=== PATIENT | male | born 1975 | race Two or more races ===

== ENCOUNTER 2025-01-26 13:22 | Inpatient (IN) | payer MEDICAID, SELFPAY ==
[2025-01-26 13:33] VITALS: BP 139/100; PULSE 108; RESP 20; TEMP 36.8; O2SAT 99
--- NOTE | 2025-01-26 14:00 | EKG_ITS ---
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
--- NOTE | 2025-01-26 14:00 | XR_ITS ---
Examination: AP chest single view TECHNIQUE: AP sitting portable chest single view Date and time: January 26, 2025 1421 hours INDICATIONS: Chest pain today. FINDINGS: Normal heart size Lungs are clear The osseous structures are intact IMPRESSION: No active disease
--- NOTE | 2025-01-26 14:02 | EDNOTE_ITS ---
ED Recheck Abnl Lab Rx-RME/HPI General Chief Complaint: Recheck/Abnormal Lab/Rx Stated Complaint: High blood sugar, possible DKA, vomiting Time Seen by Provider: 01/26/25 13:33 Arrival date/time: 01/26/25 13:22 RME / HPI RME / HPI narrative: 50-year-old male patient came in for evaluation regarding hyperglycemia. Patient has been having hyperglycemia worsening for the last 1 week, according to the family is always reads high. Associated with vomiting, for the last 3 days nonbloody. Patient was also noted to be getting weaker and weaker to the point that patient is needing assistance to ambulate. Patient denies any fever denies any abdominal pain denies any other complaints patient cannot take anything down due to vomiting. Related Data Allergies Allergy/AdvReac Type Severity Reaction Status Date / Time No Known Drug Allergies Allergy Verified 01/26/25 13:29 Review of Systems Review of Systems Narrative Review of Systems: Review of system reviewed and within normal limits except mentioned in HPI ED Exam Narrative Physical exam: VITAL SIGNS: Reviewed. GENERAL APPEARANCE: Alert and interactive, follows commands, no acute distress, HEAD AND FACE: Non-traumatic. ENT: PERRL, pink conjunctivitis, eyelid no trauma, Mucous membrane dry NECK: Supple, nontender, no nuchal rigidity. CHEST: No tenderness, no crepitus, no paradoxical movement, no retractions. LUNGS: Clear, well ventilated, symmetric, no rales, no wheezing, no ronchi, no stridor, good breath sounds bilaterally. HEART: Regular rate, regular rhythm, no murmur, no gallops. ABDOMEN: Soft, positive bowel sounds, nondistended, no guarding, nontender, no rebound, no masses, RECTAL: Deferred. GENITAL: Deferred. NEUROLOGICAL: Gross motor function intact sensory function intact, Appropriate for age. MUSCULOSKELETAL: low back nontender, full range of motion. EXTREMITIES: Nontender, full range of motion. SKIN: Color pink, dry, no rash, no lacerations, no abrasions, no contusions. LYMPHATICS: Deferred. Course Quality Measures none Orders Category Date Time Status COVID-19 Screening Questionnaire NOW Care 01/26/25 17:[address] Screening NOW Care 01/26/25 14:56 Active Decision to Admit X1 Care 01/26/25 17:51 Completed EKG (ED ONLY) *Do not use* NOW Care 01/26/25 14:01 Completed Insert IV NOW Care 01/26/25 14:[address] abdomen pelvis w con Stat Exams 01/26/25 14:56 Completed EKG (ED Only) Stat Exams 01/26/25 14:00 Ordered XR chest 1V Stat Exams 01/26/25 14:00 Completed ABG [Arterial Blood Gas] Stat Lab 01/26/25 14:21 Completed Acetone [Beta Hydroxybutyrate] Stat Lab 01/26/25 14:29 Completed CBC [CBC] Stat Lab 01/26/25 14:29 Completed CMP [Comprehensive Metabolic Panel] Stat Lab 01/26/25 14:29 Completed Lactate (Lactic Acid) Stat Lab 01/26/25 14:29 Completed Lactate (Lactic Acid) Stat Lab 01/26/25 16:40 Results Lactic Acid, 3 HR Stat Lab 01/26/25 19:40 Ordered Lipase Stat Lab 01/26/25 14:29 Completed Mag [Magnesium] Stat Lab 01/26/25 14:29 Completed UA, C/S IF [Urinalysis, C/S if Indicated] Stat Lab 01/26/25 15:50 Completed Famotidine Inj [Pepcid Inj] Med 01/26/25 13:57 Discontinued 20 mg IVP X1 ONE Ondansetron Inj [Zofran Inj] Med 01/26/25 13:57 Discontinued 4 mg IVP X1 ONE Ringers Lactated 1000 ml [Lactated Ringers] 1,000 ml Med 01/26/25 13:59 Discontinued IV 999 mls/hr Ringers Lactated 1000 ml [Lactated Ringers] 1,000 ml Med 01/26/25 13:59 Dis continued IV 999 mls/hr Ringers Lactated 1000 ml [Lactated Ringers] 1,000 ml Med 01/26/25 15:53 Discontinued IV 999 mls/hr Vital Signs Vital signs: Vital Signs Temperature 98.2 F 01/26/25 13:33 Pulse Rate 108 H 01/26/25 13:33 Respiratory Rate 20 01/26/25 13:33 Blood Pressure 139/100 H 01/26/25 13:33 Pulse Oximetry (%) 99 01/26/25 13:33 Oxygen Delivery Method Room Air 01/26/25 13:33 Recheck / Abnormal Lab / Rx MDM Narrative MDM Narrative:: 50-year-old male patient came in for evaluation regarding hyperglycemia. Patient has been having hyperglycemia worsening for the last 1 week, according to the family is always reads high. Associated with vomiting, for the last 3 days nonbloody. Patient was also noted to be getting weaker and weaker to the point that patient is needing assistance to ambulate. Patient denies any fever denies any abdominal pain denies any other complaints patient cannot take anything down due to vomiting. EKG was noted to be sinus tachycardia ventricular rate of 108 bpm, no ST segment elevation depression noted. Patient's workup is significant for lactic acidosis initially 4.2 after 3 L of fluid went up to 5.2.. CBC showed leukocytosis of 13.3 ABG showed pH of 7.5. Acetone was noted to be 0.70 blood sugar 267 with no sign of DKA. CT scan of the abdomen pelvis came back unremarkable. Urinalysis no UTI Patient was given Pepcid, and 3 L IV fluids and Zofran. Spoke with hospitalist, Dr. Estrella who admitted the patient Patient data External records reviewed:: None Clinical information provided by:: patient and family Social determinants that could affect healthcare access:: none Patient has the following chronic illnesses:: Diabetes mellitus How is presenting disease/condition affected by chronic disease/condition?: exacerbated by Evaluation data The following diagnostics were reviewed and interpreted by me:: lab results, radiology exam(s) and EKG tracing(s) Lab and/or radiology exams considered but not ordered:: None Interpretation Summary: See results MDM Medications / Prescriptions Medications or Prescriptions considered but not ordered:: None Medication administrations:: Medication Administration History Discontinued Medications Famotidine (Famotidine Inj 10 Mg/Ml Vial 2 Ml) 20 mg IVP X1 ONE Stop: 01/26/25 13:58 Last Admin: 01/26/25 14:53 Dose: 20 mg Documented By: GAYE Lactated Ringer's (Lactated Ringers) 1,000 mls @ 999 mls/hr IV .Q1H1M ONE Stop: 01/26/25 14:59 Last Infusion: 01/26/25 16:00 Dose: Infused Documented By: Admin: 01/26/25 14:57 Dose: 999 mls/hr Documented By: GAYE Lactated Ringer's (Lactated Ringers) 1,000 mls @ 999 mls/hr IV .Q1H1M ONE Stop: 01/26/25 14:59 Last Infusion: 01/26/25 16:00 Dose: Infused Documented By: Admin: 01/26/25 14:57 Dose: 999 mls/hr Documented By: GAYE Lactated Ringer's (Lactated Ringers) 1,000 mls @ 999 mls/hr IV .Q1H1M ONE Stop: 01/26/25 16:53 Last Infusion: 01/26/25 16:31 Dose: Infused Documented By: Admin: 01/26/25 15:59 Dose: 999 mls/hr Documented By: GAYE Ondansetron HCl (Ondansetron Inj 2 Mg/Ml Inj 2 Ml) 4 mg IVP X1 ONE; Protocol Stop: 01/26/25 13:58 Last Admin: 01/26/25 14:53 Dose: 4 mg Documented By: GAYE Zofran IV fluids and Pepcid Consultations Consultation(s) initiated? (list below): No Diagnosis Recheck Differential Diagnosis: other (Dehydration, DKA, lactic acidosis gastroparesis) Most likely diagnosis given after review of the tests above:: Dehydration, lactic acidosis Admission Indicated Admission indicated?: indicated Admission Request Was there a request for admission?: Yes Admission Attestation Admission request attestation: Discussed case with [Dr. Estrella] from Hospitalist service regarding admission. Discussed patients ED course, exam findings, labs, and radiology results. The Hospitalist [agrees] to accept the patient for admission. Disposition Plan Disposition Plan: Admit Discharge Plan Plan Patient Disposition: Admit Acute Care w/in Hospital Prescriptions/Referrals Referrals: No Primary/Family,Physician [Primary Care Provider] - In 1 week Problem List Clinical Impression: Acidosis, lactic, Diabetic gastroparesis, Nausea & vomiting Patient/Caregiver Discharge Instructions Print Language: Portuguese Stand Alone Forms: [employer] Award Info., Patient Portal Info Letter
[2025-01-26 14:26] LABS: Base Excess 4 (-3-3); HCO3 26 mEq/L (20-26); Inspired Oxygen, FIO2 21 %; O2 Saturation 96 % (91-98); PCO2 33 mmHg (32.0-48.0); PO2 80 mmHg (83-108)
[2025-01-26 14:28] LABS: Puncture Site Left Radial
[2025-01-26 14:29] LABS: Allen Test Performed/OK
[2025-01-26 14:44] LABS: Beta Hydroxybutyrate 0.7 mmol/L (<0.6)
[2025-01-26 14:47] LABS: Basophils # (Auto) 0.1 Thou/mm3 (0.0-0.2); Basophils % (Auto) 1 % (0-2.5); Eosinophils # (Auto) 0.1 Thou/mm3 (0.0-0.5); Eosinophils % (Auto) 1 % (0-10); Hematocrit 50.2 % (41.0-53.0); Hemoglobin 17.2 g/dL (13.5-16.0); Immature Granulocytes % (Auto) 0 % (0-0); Immature Granulocytes Auto 0.05 Thou/mm3 (0.00-0.00); Lactate (Lactic Acid) 4.2 mMol/L (0.4-2.0); Lymphocytes # (Auto) 2.6 Thou/mm3 (1.0-4.8); Lymphocytes % (Auto) 23 % (10-50); Mean Corpuscular HGB Conc 34.3 g/dl (31.0-37.0); Mean Corpuscular Volume 82 fL (80-100); Monocytes # (Auto) 1.1 Thou/mm3 (0.0-0.8); Monocytes % (Auto) 9 % (0-12); Neutrophils # (Auto) 7.5 Thou/mm3 (1.8-7.7); Neutrophils % (Auto) 66 % (37-80); Nucleated Red Blood Cell % 0 /100 WBC (0); Platelet Count 278 Thou/mm3 (140-440); RDW Standard Deviation 40.9 fL (35.1-43.9); Red Blood Count 6.14 Miln/mm3 (4.50-5.90); White Blood Count 11.3 Thou/mm3 (3.8-10.6)
[2025-01-26] MEDS: ONDANSETRON INJ 2 MG/ML INJ 2 ML 4 MG IVP (14:53)
[2025-01-26] MEDS: FAMOTIDINE INJ 10 MG/ML VIAL 2 ML 20 MG IVP (14:53)
--- NOTE | 2025-01-26 14:56 | XR_ITS ---
Examination: CT abdomen with intravenous contrast CT pelvis with intravenous contrast 2-D coronal reconstructions 2-D sagittal reconstructions Date and time of exam:January 26, 2025 1550 hours INDICATION: Abdominal pain nausea vomiting today. CTDI: vol (mGy) 8.38 DLP: (mGycm) 533 Technique: Multiple axial sections of the abdomen and pelvis have been obtained. 64 slice high-resolution scanner used. 3 mm axial sections have been obtained, post intravenous injection of 60 cc Isovue-370 2-D sagittal, coronal reconstructions obtained. Low dose protocols were performed. One or more of the following dose reduction techniques were used; automated exposure control, adjustment of the mA and/or KV according to patient size, use of iterative reconstruction technique. Findings: Diffuse fatty infiltration throughout the liver no focal liver lesions Spleen is not enlarged No gallstones No pancreatic or adrenal mass No renal or ureteral calculi, no hydronephrosis Aorta normal size No ascites Minute fat-containing umbilical hernia No periappendiceal inflammatory change No bowel obstruction Colonic diverticulosis, no diverticulitis Mild thickening of the urinary bladder wall up to 4 mm No prostatic megaly Osseous structures are intact IMPRESSION: Diffuse fatty infiltration throughout the liver No renal or ureteral calculi, no hydronephrosis Normal appendix No bowel obstruction diverticulitis or free air Minimal thickening of the urinary bladder wall, consider cystitis
[2025-01-26] MEDS: RINGERS LACTATED 1000 ML 1,000 ML 999 ML IV ×3 (14:57→15:59)
[2025-01-26 15:02] LABS: Anion Gap 14 (7-16); BUN/Creatinine Ratio 23 Ratio (12-20); Blood Urea Nitrogen 25 mg/dL (9-23); Carbon Dioxide 30.2 mMol/L (20.0-31.0); Chloride 89 mMol/L (98-107); Creatinine (Component) 1.1 mg/dL (0.6-1.3); Glucose 267 mg/dL (74-106); Potassium 4.2 mMol/L (3.4-5.1); Sodium 133 mMol/L (136-145); eGFR > 60 See Note
[2025-01-26 15:03] LABS: Alanine Aminotransferase 120 U/L (10-49); Albumin, Serum 5.2 gm/dL (3.5-5.0); Albumin/Globulin Ratio 1.6 (1.2-2.2); Alkaline Phosphatase 91 U/L (46-116); Aspartate Amino Transferase 86 U/L (0-34); Calcium 10.2 mg/dL (8.3-10.6); Calcium (Corrected) 10.2 mg/dL (8.5-10.1); Globulin 3.2 gm/dL (2.3-3.5); Lipase 199 U/L (12-53); Osmolality,Calculated 279 (275-295); Total Protein 8.4 gm/dL (5.7-8.2)
[2025-01-26 16:01] LABS: Collection Type, Urine Clean Catch; RBC,Urine 0 /hpf (0-3); Squamous Epithelial Cell,Urine 0 /hpf (0-5); WBC,Urine 0 /hpf (0-5)
[2025-01-26 16:04] VITALS: BP 145/91; PULSE 87; RESP 18; TEMP 36.8; O2SAT 100
[2025-01-26 16:11] LABS: Bilirubin,Urine Negative (Negative); Blood,Urine Negative (Negative); Clarity,Urine Clear (Clear/Hazy); Color,Urine Lt-Yellow (Lt Yel-Yel); Culture Indicated,Urine Not Indicated; Glucose, Urine 4+ (Negative); Ketones,Urine 2+ (Negative); Leukocyte Esterase,Urine Negative (Negative); Nitrite,Urine Negative (Negative); PH,Urine 6.5 (5.0-7.0); Protein,Urine Negative (Neg - Trace); Specific Gravity,Urine 1.024 (1.001-1.035); Urobilinogen,Urine Negative mg/dL (0.0-1.0)
[2025-01-26 17:06] LABS: Lactate (Lactic Acid) 5.2 mMol/L (0.4-2.0)
[2025-01-26 17:33] LABS: Reflex Lactate? Y
--- NOTE | 2025-01-26 18:04 | EKG_ITS ---
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
--- NOTE | 2025-01-26 18:07 | PD.RESHP ---
Documentation for date of: 01/26/25 HPI History of Present Illness Chief complaint: intractable vomiting History of present illness: Tello Barajas is 50 yr male with PMH of T2DM, HTN presenting to ED due to intractable nausea and vomiting since past couple days. Patient had gone to see PCP at [facility] and was concerned, advised patient to come to ED. Patient stated that he has had no oral intake since past 3 days. Experiences vomiting even with sips of water says it feels like stomach is full/bloated. Denies any fever, headache, chills, no hematemesis, has had no sick contacts, only eats at home. Endorses loose stools but not quite diarrhea. No abdominal pain. Patient checks blood sugars at home 5 times a day typically range 200?300. He has improved diet and has lost some weight per . In ED, BP 140/100, tachycardia 108, afebrile saturating 99% room air. Mild leukocytosis 11, 133, potassium 4.2, chloride 89, bicarb 30, creatinine 1.1, Lactic acid 4.2 up trended to 5.2. Transaminitis AST 86, ALT 120, lipase 200. Chest x-ray negative for active disease, CT abdomen pelvis showed mild thickening urinary bladder, no bowel obstruction. He was given Zofran, famotidine, 3 bolus LR in the ED. Patient to be admitted for intractable nausea and vomiting most likely secondary to diabetic gastroparesis. PMH: As noted above PSH: Denies surgeries FamHx: Significant for diabetes in siblings and mother, father Social: Currently unemployed, denies smoking, denies drinking, denies drug use. Meds: Med rec pending Allergies: NKDA Review of Systems Review of Systems Systems Reviewed: All systems reviewed, normal except as documented Exam Vital Signs Temp Pulse Resp BP Pulse Ox O2 Del Method 98.3 F 87 18 145/91 H 100 Room Air 01/26/25 16:04 01/26/25 16:04 01/26/25 16:04 01/26/25 16:04 01/26/25 16:04 01/26/25 16:04 Narrative Exam General: middle age male, No acute distress, cooperative HEENT: NCAT, No JVD noted. Mucosa dry. Pupils are equal and reactive to light bilaterally Cardiovascular: Normal S1 and S2. Regular rate and rhythm. Respiratory: Lungs are clear to auscultation bilaterally. No wheezing or crackles heard. Abdomen: Soft, nontender, not distended, hypoactive bowel sounds. Skin: Warm to touch, dry, no rashes noted Musculoskeletal: No gross injuries. Able to move all 4 extremities. No pitting edema Neuro: Alert and oriented x3. No focal neuro deficits. Psych: Normal affect and mood Results: Labs 01/27/25 04:40 01/27/25 04:40 Labs: Short CBC 01/26/25 Range/Units 14:29 WBC 11.3 H (3.8-10.6) Thou/mm3 Hgb 17.2 H (13.5-16.0) g/dL Hct 50.2 (41.0-53.0) % Plt Count 278 (140-440) Thou/mm3 BMP 01/26/25 14:29 Sodium 133 L Potassium 4.2 Chloride 89 L Carbon Dioxide 30.2 BUN 25 H Creatinine 1.1 Glucose 267 H Calcium 10.2 Liver Function 01/26/25 Range/Units 14:29 Total Bilirubin 1.0 (0.3-1.2) mg/dL AST 86 H (0-34) U/L ALT 120 H (10-49) U/L Alkaline Phosphatase 91 (46-116) U/L Albumin 5.2 H (3.5-5.0) gm/dL Urine 01/26/25 Range/Units 15:50 Urine Color Lt-Yellow (Lt Yel-Yel) Urine Clarity Clear (Clear/Hazy) Urine pH 6.5 (5.0-7.0) Ur Specific [place] 1.024 (1.001-1.035) Urine Protein Negative (Neg - Trace) Urine Glucose (UA) 4+ A (Negative) ABG Interpretation ABG results: 01/26/25 14:21 ABG pH 7.50 H ABG pCO2 33 ABG pO2 80 L ABG HCO3 26 ABG O2 Saturation 96 ABG Base Excess 4 H Quality Measures Quality Measures VTE prophylaxis Medications Home Medications and Allergies Home Medications ?Medication ?Instructions ?Recorded ?Confirmed ?Type Antacid (calcium carbonate) 600 mg PO DAILY 01/26/25 01/26/25 History atorvastatin 40 mg tablet 40 mg PO QDAY 01/26/25 01/26/25 History cyclobenzaprine 10 mg tablet 10 mg PO BID 01/26/25 01/26/25 History empagliflozin 25 mg tablet 25 mg PO QDAY 01/26/25 01/26/25 History (Jardiance) famotidine 20 mg tablet 20 mg PO HS 01/26/25 01/26/25 History fenofibrate nanocrystallized 145 145 mg PO QDAY 01/26/25 01/26/25 History mg tablet (Tricor) glyburide 5 mg tablet 5 mg PO QDAY 01/26/25 01/26/25 History hydrochlorothiazide 25 mg tablet 25 mg PO BID 01/26/25 01/26/25 History losartan 50 mg tablet 50 mg PO QDAY 01/26/25 01/26/25 History meloxicam 7.5 mg tablet 7.5 mg PO QDAY 01/26/25 01/26/25 History metoprolol tartrate 50 mg tablet 50 mg PO BID 01/26/25 01/26/25 History sitagliptin phosphate 50 1 tab PO BIDWMEAL 01/26/25 01/26/25 History mg-metformin 1,000 mg tablet (Janumet) Allergies Allergy/AdvReac Type Severity Reaction Status Date / Time No Known Drug Allergies Allergy Verified 01/26/25 13:29 Visit Medications Acetaminophen (Acetaminophen 325 Mg Tablet) 650 mg PO Q6H PRN PRN Reason: Fever >100.3 or pain 1-3 Stop: 02/25/25 17:56 Dextrose (Dextrose 50%-Water Inj 50 Ml Syringe) 25 ml IV Q15MIN PRN PRN Reason: BG 50-70 responsive npo pt Stop: 02/25/25 18:03 Dextrose (Dextrose 50%-Water Inj 50 Ml Syringe) 50 ml IV Q15MIN PRN PRN Reason: BG <50 OR BG <70 & pt unresponsive Stop: 02/25/25 18:03 Enoxaparin Sodium (Enoxaparin Sod Inj 40 Mg/0.4 Ml Syringe) 40 mg SC QDAY GINNA Stop: 02/09/25 18:14 Glucagon (Glucagon Inj 1 Mg Vial) 1 mg IM Q15MIN PRN PRN Reason: BG <70, and no IV access Insulin Human Lispro (Insulin Lispro (Admelog) 1 Unit/0.01 Ml Unit) 0 unit SC AC GINNA; Protocol Stop: 02/26/25 07:29 Lactulose (Lactulose Syrup 20 Gm/30 Ml Udc) 10 gm PO TID PRN; Protocol PRN Reason: CONSTIPATION Stop: 02/25/25 18:01 Metoclopramide HCl (Metoclopramide Inj 5 Mg/Ml Vial 2 Ml) 5 mg IVP TID GINNA; Protocol Stop: 02/25/25 18:14 Discontinued Medications Famotidine (Famotidine Inj 10 Mg/Ml Vial 2 Ml) 20 mg IVP X1 ONE Stop: 01/26/25 13:58 Last Admin: 01/26/25 14:53 Dose: 20 mg Lactated Ringer's (Lactated Ringers) 1,000 mls @ 999 mls/hr IV .Q1H1M ONE Stop: 01/26/25 14:59 Last Infusion: 01/26/25 16:00 Dose: Infused Lactated Ringer's (Lactated Ringers) 1,000 mls @ 999 mls/hr IV .Q1H1M ONE Stop: 01/26/25 14:59 Last Infusion: 01/26/25 16:00 Dose: Infused Lactated Ringer's (Lactated Ringers) 1,000 mls @ 999 mls/hr IV .Q1H1M ONE Stop: 01/26/25 16:53 Last Infusion: 01/26/25 16:31 Dose: Infused Ondansetron HCl (Ondansetron Inj 2 Mg/Ml Inj 2 Ml) 4 mg IVP X1 ONE; Protocol Stop: 01/26/25 13:58 Last Admin: 01/26/25 14:53 Dose: 4 mg Assessment & Plan Plan Tello Barajas is 50 yr male with PMH of T2DM, HTN presenting to ED due to intractable nausea and vomiting since past couple days. Patient stated that he has had no oral intake since past 3 days. Patient to be admitted for intractable nausea and vomiting most likely secondary to diabetic gastroparesis. # Intractable nausea and vomiting DDx: Diabetic gastroparesis, viral gastroenteritis, bowel obstruction, biliary disease No oral intake past 3-4 days. Experiences vomiting even with sips of water. Denies any sick contacts, denies any new food. CT abdomen pelvis showed mild thickening urinary bladder, no bowel obstruction. He was given Zofran, famotidine, 3 bolus LR in the ED. ?Start clear liquid diet advance as tolerated ? IV metoclopramide 5 mg TID ?Maintenance fluids LR 80 cc/h -repeat EKG in AM to monitor QTc levels -utox pending #Lactic acidosis #Leukocytosis, reactive Most likely type B with no evidence of significant hypoxia. Patient uses metformin for diabetes. Initial lactic acid 4.2, he was given 3 bolus LR in the ED. Subsequently up trended to 5.2. ?Trend lactic acid ? Continue maintenance fluids as above #Hx fpf-[id number] type 2 diabetes Patient takes glyburide 5mg, Janumet 50-100mg BID, Jardiance 25mg daily. No A1c on file. On admission initial glucose 267. -Held home medications -Bedside blood glucose checks ACHS -Insulin lispro sliding scale -Carb consistent low diet -A1c pending #Transaminitis AST 86, ALT 120, lipase 200. Abdominal exam benign. Imaging negative for gallstones. ? Monitor with daily CMP #Hx hypertension Takes losartan 50mg daily, metoprolol-HCTZ 50-25mg BID. -resume once he can tolerate oral intake Health maintenance: Dispo: medsurg, intractable vomiting FEN: low carb, clear liquid DVT prophylaxis:Lovenox CODE STATUS: Full code The patient's management plan was discussed with my attending physician Dr. Estrella. Марина Fink, PGY-1 Attending Provider Attestation/Addendum I have examined the patient, reviewed labs and imaging findings, discussed the case with the resident(s), and reviewed entered orders. I agree with the plan of care as outlined in this note, with these additional summaries/recommendations: After examination of the patient and review of the clinical data, I feel that this patient needs admission to the hospital for further treatment and evaluation. Patient seen at bedside. He reports intractable nausea and vomiting for 72 hours. He reports he has had no oral intake. Etiology gastroparesis versus viral gastroenteritis. Start reglan and monitor for improvement. We will defer gastric emptying study as patient currently has hyperglycemia which can alter study results. Once blood sugars more improved patient can follow-up outpatient for gastric emptying study. Order A1C. Start insulin sliding scale with accu-checks. Target BS of 140-180 while hospitalized. Start CLD and monitor if patient can tolerate. Okay to start maintenance fluids. Patient noted to have significant lactic acidosis which is most likely type B from metformin. No need for further fluid bolus as this is not type A lactic acidosis. Resume home antihypertensive and gabapentin for neuropathy. Patient updated on the plan and all questions answered to satisfaction. Please see residents note for additional details and management. Dr. Delores MD
[2025-01-26 18:26] VITALS: BP 142/102; PULSE 89; RESP 20; TEMP 36.7; O2SAT 98
[2025-01-26] MEDS: ENOXAPARIN SOD INJ 40 MG/0.4 ML SYRINGE SC (18:40)
[2025-01-26] MEDS: RINGERS LACTATED 1000 ML 1,000 ML 80 ML IV (18:44)
[2025-01-26 19:13] LABS: Amphetamine/Methamp Scrn,U Negative (Negative); Barbiturate Screen,Urine Negative (Negative); Benzodiazepines Screen,Urine Negative (Negative); Benzoylecgonine Screen, Ur Negative (Negative); Fentanyl Screen,Urine Negative (Negative); Opiate Screen,Urine Negative (Negative); THC Screen,Urine Positive (Negative)
[2025-01-26 19:50] LABS: Reflex Lactate? Y
[2025-01-26 20:01] VITALS: BP 134/103; PULSE 83; RESP 18; TEMP 36.7; O2SAT 96; BMI 29.6
[2025-01-26 20:50] LABS: Lactic Acid, 3 HR 2.5 mMol/L (0.4-2.0)
[2025-01-27] VITALS: BP 114/87; PULSE 81; RESP 16; TEMP 36.8; O2SAT 98
[2025-01-27] MEDS: MELATONIN 3 MG TABLET PO (00:42)
[2025-01-27 04:00] VITALS: BP 124/91; PULSE 73; RESP 16; TEMP 36.6; O2SAT 96
[2025-01-27 06:27] LABS: Basophils % (Auto) 1 % (0-2.5); Eosinophils # (Auto) 0.2 Thou/mm3 (0.0-0.5); Eosinophils % (Auto) 3 % (0-10); Hematocrit 43.2 % (41.0-53.0); Hemoglobin 14.5 g/dL (13.5-16.0); Immature Granulocytes % (Auto) 0 % (0-0); Immature Granulocytes Auto 0.02 Thou/mm3 (0.00-0.00); Lymphocytes % (Auto) 44 % (10-50); Mean Corpuscular HGB Conc 33.6 g/dl (31.0-37.0); Mean Corpuscular Hemoglobin 27.8 pg (25.0-35.0); Mean Corpuscular Volume 83 fL (80-100); Monocytes # (Auto) 0.6 Thou/mm3 (0.0-0.8); Monocytes % (Auto) 8 % (0-12); Neutrophils % (Auto) 44 % (37-80); Nucleated Red Blood Cell % 0 /100 WBC (0); Platelet Count 191 Thou/mm3 (140-440); RDW Standard Deviation 41.5 fL (35.1-43.9); Red Blood Count 5.22 Miln/mm3 (4.50-5.90); White Blood Count 6.8 Thou/mm3 (3.8-10.6)
[2025-01-27 06:47] LABS: Glucose Estimated Average 229 mg/dL (80-131); Hemoglobin A1C 9.6 % Hgb (4.8-6.0)
[2025-01-27 06:55] LABS: Alanine Aminotransferase 116 U/L (10-49); Albumin, Serum 4.1 gm/dL (3.5-5.0); Albumin/Globulin Ratio 1.7 (1.2-2.2); Alkaline Phosphatase 71 U/L (46-116); Anion Gap 12 (7-16); Aspartate Amino Transferase 153 U/L (0-34); BUN/Creatinine Ratio 15 Ratio (12-20); Blood Urea Nitrogen 12 mg/dL (9-23); Carbon Dioxide 27.9 mMol/L (20.0-31.0); Cardiac Risk Estimate 6.1 RATIO (4.0-6.7); Chloride 99 mMol/L (98-107); Cholesterol 141 mg/dL (132-200); Creatinine (Component) 0.8 mg/dL (0.6-1.3); Estimated Creatinine Clearance 115.5 mL/min (>60); Globulin 2.4 gm/dL (2.3-3.5); Glucose 140 mg/dL (74-106); HDL Cholesterol 23 mg/dL (40-60); Magnesium 1.6 mg/dL (1.6-2.6); Osmolality,Calculated 279 (275-295); Phosphorous 2.7 mg/dL (2.4-5.1); Potassium 3.2 mMol/L (3.4-5.1); Sodium 139 mMol/L (136-145); Total Protein 6.5 gm/dL (5.7-8.2); Triglycerides 462 mg/dL (30-150); eGFR > 60 See Note
[2025-01-27] MEDS: INSULIN LISPRO (AdmeLOG) 1 UNIT/0.01 ML UNIT SC ×2 (07:51→11:49)
[2025-01-27 07:59] VITALS: BP 123/63; PULSE 68; RESP 18; TEMP 36.5; O2SAT 97
--- NOTE | 2025-01-27 09:18 | PC.SS ---
Patient Tello Barajas is a 50 Year old male admitted for Intractable Vomiting. SS met with patient at bedside to verify demographic information. Patient appeared alert and oriented. Patient reports he lives at home with family. Patient reports his medical decision maker is his Peggy Hou [phone]. Patient reports he does not utilize any source of DME to assist with ambulation. Patient is able to complete all ADL's independently. Choice of pharmacy is [facility]. PCP is Jason Packer. At time of discharge patient reports he will return back home, family will provide transportation. Next of kin, Peggy Andrews Discharge plan: Home
[2025-01-27 09:37] VITALS: BP 123/63; PULSE 68
[2025-01-27] MEDS: LOSARTAN POTASSIUM 25 MG TABLET 50 MG PO (09:37)
[2025-01-27] MEDS: ENOXAPARIN SOD INJ 40 MG/0.4 ML SYRINGE SC (09:37)
[2025-01-27] MEDS: POTASSIUM CHLORIDE 20 mEq TABCR 40 MEQ PO (09:38)
--- NOTE | 2025-01-27 10:40 | PD.RESPRO ---
Documentation for date of: 01/27/25 Exam Vital Signs Temp Pulse Resp BP Pulse Ox O2 Del Method 97.7 F 68 18 123/63 97 Room Air 01/27/25 07:59 01/27/25 09:37 01/27/25 07:59 01/27/25 09:37 01/27/25 07:59 01/27/25 07:59 Objective Labs 01/27/25 04:40 01/27/25 04:40 Labs: Laboratory Results - last 24 hr 01/26/25 01/26/25 01/26/25 14:21 14:29 15:50 WBC 11.3 H RBC 6.14 H Hgb 17.2 H Hct 50.2 MCV 82 MCH 28.0 MCHC 34.3 RDW Std Deviation 40.9 Plt Count 278 Neut % (Auto) 66 Lymph % (Auto) 23 [place] % (Auto) 9 Eos % (Auto) 1 Baso % (Auto) 1 Neut # (Auto) 7.5 Lymph # (Auto) 2.6 [place] # (Auto) 1.1 H Eos # (Auto) 0.1 Baso # (Auto) 0.1 Immature Gran # (Auto) 0.05 H Absolute Nucleated RBC 0.00 Immature Gran % 0 Nucleated RBC % 0 Puncture Site Left Radial ABG pH 7.50 H ABG pCO2 33 ABG pO2 80 L ABG HCO3 26 ABG O2 Saturation 96 ABG Base Excess 4 H FiO2 21 Sodium 133 L Potassium 4.2 Chloride 89 L Carbon Dioxide 30.2 Anion Gap 14 BUN 25 H Creatinine 1.1 Estim Creat Clear Calc Not Performed. eGFR > 60 BUN/Creatinine Ratio 23 H Glucose [address] Glu mg/dL Hemoglobin A1c Calculated Osmolality 279 Lactic Acid 4.2 H* Calcium 10.2 Corrected Calcium 10.2 H Phosphorus Magnesium 2.0 Total Bilirubin 1.0 AST 86 H ALT 120 H Alkaline Phosphatase 91 Total Protein 8.4 H Albumin 5.2 H Globulin 3.2 Albumin/Globulin Ratio 1.6 Triglycerides Cholesterol LDL Cholesterol, Calc HDL Cholesterol Cholesterol/HDL Ratio Lipase 199 H Beta-Hydroxybutyrate/Acetoacetate 0.7 H Ur Collection Type Clean Catch Urine Color Lt-Yellow Urine Clarity Clear Urine pH 6.5 Ur Specific [place] 1.024 Urine Protein Negative Urine Glucose (UA) 4+ A Urine Ketones 2+ A Urine Blood Negative Urine Nitrite Negative Urine Bilirubin Negative Urine Urobilinogen (Auto) Negative Ur Leukocyte Esterase Negative Urine RBC 0 Urine WBC 0 Ur Squamous Epith Cells 0 Urine Bacteria None Ur Culture Indicated? Not Indicated Urine Opiates Screen Negative Urine Fentanyl Screen Negative Ur Barbiturates Screen Negative U Amphetamin/Meth Scrn Negative U Benzodiazepines Scrn Negative U Cocaine Metab Screen Negative U Marijuana (THC) Screen Positive A 01/26/25 01/26/25 01/27/25 16:40 20:40 04:40 WBC 6.8 RBC 5.22 Hgb 14.5 D Hct 43.2 MCV 83 MCH 27.8 MCHC 33.6 RDW Std Deviation 41.5 Plt Count 191 D Neut % (Auto) 44 Lymph % (Auto) 44 [place] % (Auto) 8 Eos % (Auto) 3 Baso % (Auto) 1 Neut # (Auto) 3.0 Lymph # (Auto) 3.0 [place] # (Auto) 0.6 Eos # (Auto) 0.2 Baso # (Auto) 0.0 Immature Gran # (Auto) 0.02 H Absolute Nucleated RBC 0.00 Immature Gran % 0 Nucleated RBC % 0 Puncture Site ABG pH ABG pCO2 ABG pO2 ABG HCO3 ABG O2 Saturation ABG Base Excess FiO2 Sodium 139 Potassium 3.2 L D Chloride 99 Carbon Dioxide 27.9 Anion Gap 12 BUN 12 Creatinine 0.8 Estim Creat Clear Calc 115.5 eGFR > 60 BUN/Creatinine Ratio 15 [address]ucose [address] Glu mg/dL 229 H Hemoglobin A1c 9.6 H Calculated Osmolality 279 Lactic Acid 5.2 H* 2.5 H Calcium 9.0 Corrected Calcium 9.0 Phosphorus 2.7 Magnesium 1.6 Total Bilirubin 1.0 AST 153 H ALT 116 H Alkaline Phosphatase 71 D Total Protein 6.5 Albumin 4.1 D Globulin 2.4 Albumin/Globulin Ratio 1.7 Triglycerides 462 H Cholesterol 141 LDL Cholesterol, Calc TNP HDL Cholesterol 23 L Cholesterol/HDL Ratio 6.1 Lipase Beta-Hydroxybutyrate/Acetoacetate Ur Collection Type Urine Color Urine Clarity Urine pH Ur Specific [place] Urine Protein Urine Glucose (UA) Urine Ketones Urine Blood Urine Nitrite Urine Bilirubin Urine Urobilinogen (Auto) Ur Leukocyte Esterase Urine RBC Urine WBC Ur Squamous Epith Cells Urine Bacteria Ur Culture Indicated? Urine Opiates Screen Urine Fentanyl Screen Ur Barbiturates Screen U Amphetamin/Meth Scrn U Benzodiazepines Scrn U Cocaine Metab Screen U Marijuana (THC) Screen ABG Interpretation ABG results: 01/26/25 14:21 ABG pH 7.50 H ABG pCO2 33 ABG pO2 80 L ABG HCO3 26 ABG O2 Saturation 96 ABG Base Excess 4 H Quality Measures Quality Measures VTE prophylaxis Assessment & Plan Assessment Current Active Medications: Generic Name Dose Route Start Last Admin Trade Name Freq PRN Reason Stop Dose Admin Acetaminophen 650 mg 01/26/25 17:57 Acetaminophen 325 Mg Tablet PO 02/25/25 17:56 Q6H PRN Fever >100.3 or pain 1-3 Dextrose 25 ml 01/26/25 18:04 Dextrose 50%-Water Inj 50 Ml Syringe IV 02/25/25 18:03 Q15MIN PRN BG 50-70 responsive npo pt Dextrose 50 ml 01/26/25 18:04 Dextrose 50%-Water Inj 50 Ml Syringe IV 02/25/25 18:03 Q15MIN PRN BG <50 OR BG <70 & pt unresponsive Enoxaparin Sodium 40 mg 01/26/25 18:15 01/27/25 09:37 Enoxaparin Sod Inj 40 Mg/0.4 Ml Syringe SC 02/09/25 18:14 40 mg QDAY GINNA Administration Glucagon 1 mg 01/26/25 18:04 Glucagon Inj 1 Mg Vial IM Q15MIN PRN BG <70, and no IV access Insulin Human Lispro 0 unit 01/27/25 07:30 01/27/25 07:51 Insulin Lispro (Admelog) 1 Unit/0.01 Ml Unit SC 02/26/25 07:29 1 unit AC GINNA Administration Protocol Lactulose 10 gm 01/26/25 18:02 Lactulose Syrup 20 Gm/30 Ml Udc PO 02/25/25 18:01 TID PRN CONSTIPATION Protocol Losartan Potassium 50 mg 01/27/25 09:00 01/27/25 09:37 Losartan Potassium 25 Mg Tablet PO 02/26/25 08:59 50 mg QDAY GINNA Administration Metoclopramide HCl 10 mg 01/26/25 18:44 Metoclopramide Inj 5 Mg/Ml Vial 2 Ml IVP 02/25/25 18:42 Q8HR PRN nausea or vomiting Protocol
[2025-01-27 11:11] LABS: Lactate (Lactic Acid) 3.1 mMol/L (0.4-2.0)
[2025-01-27 12:00] VITALS: BP 135/90; PULSE 66; RESP 19; TEMP 36.2; O2SAT 99
[2025-01-27 14:08] LABS: Reflex Lactate? Y
--- NOTE | 2025-01-27 14:22 | PD.RESDS ---
Planned Discharge Date 01/27/25 DS: Providers Provider Date of admission: 01/26/25 17:57 Primary care physician: Physician No Primary/Family Admitting Provider: Dennis Estrella MD Attending Provider on Admission: Dennis Estrella MD Attending Provider on DC: Demetria Simpson MD Discharging Provider: Demetria Simpson MD DS: Diagnosis Problem List Completed Was Problem List Reviewed/Reconciled?: Yes Hospital Course Hospital Course Hospital course: The patient is a 50-year-old male with a history of type II diabetes and hypertension who presented to the ED with intractable nausea and vomiting. He reported no oral intake over the past few days. Differential included gastroparesis vs. viral gastroenteritis. On presentation, the patient was hemodynamically stable. Labs showed lactic acidosis, likely type B due to metformin use. He received IV fluids, and his elevated blood glucose was managed with insulin and a sliding scale regimen. Chest X-ray was unremarkable. CT of the abdomen and pelvis showed mild bladder wall thickening, with no signs of bowel obstruction. Reglan was started. During hospitalization, the patient improved significantly. He tolerated a clear liquid diet, which was advanced as tolerated. Today, he is stable and denies nausea, vomiting, or abdominal pain. Diet has been advanced without issues. Discharge Plan: Discharge home today Reglan 5 mg orally three times daily for gastroparesis Resume home medications except atorvastatin, and fenofibrate (to be re-evaluated outpatient) Emphasize tight blood sugar control; A1c was 9.6% Follow up with primary care provider for diabetes management and medication review All questions and concerns were addressed. Patient gave verbalized understanding. #Intractable nausea and vomiting?resolved #Lactic acidosis type B in the setting of metformin improved #Non-insulin dependent DM type II #Transaminitis #Hypertension. Patient care was discussed with attending physician Dr. Delores Simpson MD PGY-2 I have carefully reviewed this document. Due to imperfections in the voice software, there could be grammatical errors including phonetic/typographic errors. This in no way compromises the medical care the patient is receiving Time Spent with Patient Time attestation: Total time spent providing and/or coordinating discharge services: Time spent: Greater than 30 minutes Exam Vital Signs Temp Pulse Resp BP Pulse Ox O2 Del Method 97.1 F 66 19 135/90 H 99 Room Air 01/27/25 12:00 01/27/25 12:00 01/27/25 12:01/27/25 12:01/27/25 12:01/27/25 12:00 Narrative Exam GENERAL: no acute distress, AAO x3, well nourished. HEENT: Head AT/ NC. Mucous membranes moist. PERRL. NECK: Supple, no lymphadenopathy, no carotid bruits. CARDIOVASCULAR: RRR. Normal S1/S2, No m/r/g. No pitting edema of bilateral LEs. RESPIRATORY: CTAB. No wheezing, rhonchi, crackles. GASTROINTESTINAL: Abdomen soft, non tender no palpable masses. Bowel sounds present in all 4 quadrants. MUSCULOSKELETAL:? No cyanosis or edema, no visible joint swelling. NEUROLOGICAL: CN II-XII grossly intact. No focal deficits. Sensation intact, symmetric. PSYCHIATRIC: Awake and alert, not agitated, normal mood and affect. INTEGUMENTARY: No obvious rashes, no jaundice, normal turgor. Discharge Plan Plan Patient Disposition: HOME (Self Care) Patient condition on transfer: Stable and Benefits outweigh risks Prescriptions/Referrals Prescriptions/Med Rec: New metoclopramide HCl [Reglan] 5 mg tablet 5 mg PO Q8H MDD 3tab 7 Days Qty: 21 0RF Rx Instructions: Take 30 minutes before meal, do not exceed maximum daily dose Continued losartan 50 mg tablet 50 mg PO QDAY cyclobenzaprine 10 mg tablet 10 mg PO BID famotidine 20 mg tablet 20 mg PO HS glyburide 5 mg tablet 5 mg PO QDAY Rx Instructions: with breakfast Janumet 50-1,000 mg tablet 1 tab PO BIDWMEAL Jardiance 25 mg tablet 25 mg PO QDAY meloxicam 7.5 mg tablet 7.5 mg PO QDAY Antacid (calcium carbonate) tablet 600 mg PO DAILY hydrochlorothiazide 25 mg tablet 25 mg PO BID metoprolol tartrate 50 mg tablet 50 mg PO BID Held atorvastatin 40 mg tablet 40 mg PO QDAY Hold Instructions: Resume on 02/10/25. Your liver enzymes are elevated, hold for 2 weeks, repeat liver panel, follow-up with PCP in 1 to 2 weeks before restarting. fenofibrate nanocrystallized [Tricor] 145 mg tablet 145 mg PO QDAY Hold Instructions: Resume on 02/10/25. Follow-up with PCP before restarting, repeat liver panel in 1 to 2 weeks Referrals: No Primary/Family,Physician [Primary Care Provider] - Patient/Caregiver Discharge Instructions Other Discharge Activity Instructions:: Continue the rest of the home medication as prescribed Start taking metoclopramide 5 mg p.o. every 8 hours, 30 minutes before each meal Fenofibrate and atorvastatin was held, your liver enzymes are elevated, please follow-up with your primary care provider in 1 to 2 weeks after discharge, repeat liver panel before restarting Please follow-up outpatient with primary care provider he will need antidiabetic medication adjustment He will also benefit from GI evaluation regarding diabetic gastroparesis and may need further evaluation of gastroparesis Adjust your diet by eating smaller, more frequent meals. Increase your protein intake while reducing your carbohydrate consumption. Return to ED anytime symptoms worsens. Contin?e con el john de la medicaci?n domiciliaria seg?n lo prescrito. Comience a ruth metoclopramida 5 mg por v?a oral cada 8 horas, 30 minutos antes de cada comida. Se suspendi? el fenofibrato y la atorvastatina; bibi enzimas hep?jamaal est?n elevadas. Por favor, consulte con hyman m?dico de cabecera en 1 o 2 semanas despu?s del ajay; repita el perfil hep?azucena antes de reiniciar. Por favor, consulte con hyman m?dico de cabecera para el seguimiento ambulatorio; necesitar? ajustar la medicaci?n antidiab?karla. Tambi?n se beneficiar? de chase evaluaci?n gastrointestinal para detectar gastroparesia diab?karla y podr?a requerir chase evaluaci?n adicional de la gastroparesia. Adapte hyman dieta con comidas m?s juliette?as y frecuentes. Aumente hyman ingesta de prote?aj y reduzca hyman consumo de carbohidratos. Regrese a urgencias en cuanto los s?ntomas empeoren. Education Materials: Delayed Gastric Emptying Print Language: Setswana Stand Alone Forms: [employer] Award Info., Patient Portal Info Letter Discharge Order Discharge Orders: Discharge (Routine); Ordered 01/27/25 Ordered By: Demetria Simpson Quality Discharge Quality Measures VTE prophylaxis Attestestation MD Attestation I have examined the patient, reviewed labs and imaging findings, discussed the case with the resident(s), and reviewed entered orders. I agree with the plan of care as outlined in this note, with these additional summaries/recommendations: Patient seen at bedside. No acute overnight events. He reports significant improvement intractable nausea and vomiting after starting treatment for likely diabetic gastroparesis. Continue reglan and advance diet as tolerated. Counseled on importance of blood sugar control. Continue insulin sliding scale. Target BS of 140-180 while hospitalized. No further work-up or treatment needed for lactic acidosis which is type B from metformin. Please see residents note for additional details and management. Dr. Delores MD
[2025-01-27 14:46] LABS: Lactic Acid, 3 HR 1.7 mMol/L (0.4-2.0)
--- NOTE | 2025-01-27 15:42 | PC.SS ---
SS follow up note; Patient will possibly discharge home tomorrow.
[2025-01-27 16:00] VITALS: BP 127/84; PULSE 81; RESP 18; TEMP 36.4; O2SAT 98
== END 2025-01-27 16:57 | disposition home or self-care (01) | DRG 48 ==
LOC: SERX 18:08 → SERHOLD 18:27 → S3SX 20:01
PROVIDERS: Nurse Practitioner Family; Student in an Organized Health Care Education/Training Program; Admitting Provider Student in an Organized Health Care Education/Training Program; Emergency Provider Emergency Medicine; Visit Provider Student in an Organized Health Care Education/Training Program
DX: E11.43 Type 2 diabetes mellitus with diabetic autonomic (poly)neuropathy (principal); K31.84 Gastroparesis; E11.65 Type 2 diabetes mellitus with hyperglycemia; E87.20 Acidosis, unspecified; I10 Essential (primary) hypertension; D72.829 Elevated white blood cell count, unspecified; R74.01 Elevation of levels of liver transaminase levels; G62.9 Polyneuropathy, unspecified; Z56.0 Unemployment, unspecified; Z79.4 Long term (current) use of insulin; Z79.84 Long term (current) use of oral hypoglycemic drugs; Z79.899 Other long term (current) drug therapy
CPT/HCPCS: 36415; 36600; 71045; 74177; 80053; 80061; 80307; 81001; 82010; 82803; 83036; 83605; 83690; 83735; 84100; 85025; 93005; 96361; 96372; 96374; 96375; 99285; A4649; J1650; J1815; J2405; J3490; J7120; Q9967; A9270

== ENCOUNTER 2025-01-29 11:03 | Outpatient (AMB) | payer MEDICAID, SELFPAY ==
[2025-01-29 11:25] VITALS: BP 128/95; PULSE 110; RESP 18; TEMP 36.4; O2SAT 98; BMI 28.8
--- NOTE | 2025-01-29 11:25 | ACNOTE_ITS ---
Vital Signs 01/29/25 11:25 Height 1.7 m Height Method Stated Weight 83.518 kg Weight Measurement Method Standing Scale BMI 28.8 BP 128/95 H Blood Pressure Source Automatic Cuff Blood Pressure Location Right Upper Arm Position Sitting Respiration 18 Pulse 110 H Pulse Source Monitor Temp 97.5 F Temp Source Temporal Artery Scan Pulse Oximetry (%) 98 Oxygen Delivery Method Room Air Allergies/Meds Allergies & Medications Allergies No Known Drug Allergies Allergy (Verified 01/29/25 11:25) Medication Reconciliation Antacid (calcium carbonate) 600 mg PO DAILY 01/26/25 [History Confirmed 0 01/29/25] atorvastatin 40 mg tablet 40 mg PO QDAY 01/26/25 [History Confirmed 01/29/25] Held on 01/27/25. Instructions: Resume on 02/10/25. Your liver enzymes are elevated, hold for 2 weeks, repeat liver panel, follow-up with PCP in 1 to 2 weeks before restarting. fenofibrate nanocrystallized 145 mg tablet (Tricor) 145 mg PO QDAY 01/26/25 [History Confirmed 01/29/25] Held on 01/27/25. Instructions: Resume on 02/10/25. Follow-up with PCP before restarting, repeat liver panel in 1 to 2 weeks metoclopramide HCl 5 mg tablet (Reglan) 5 mg PO Q8H 1 week #21 tabs 01/27/25 [Rx Confirmed 01/29/25] 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 sensor (FreeStyle [place] 3 Sensor device) #1 ea 01/29/25 [Rx] cyclobenzaprine 10 mg tablet 10 mg PO BID 30 days #60 tabs 01/29/25 [Rx] empagliflozin 25 mg tablet (Jardiance) 25 mg PO QDAY 30 days #30 tabs 01/29/25 [Rx] famotidine 20 mg tablet 20 mg PO HS 30 days #30 tabs 01/29/25 [Rx] hydrochlorothiazide 25 mg tablet 25 mg PO BID 30 days #60 tabs 01/29/25 [Rx] insulin degludec 100 unit/mL (3 mL) subcutaneous pen 10 unit (0.1 mL) subcut QHS #15 mL 01/29/25 [Rx] losartan 50 mg tablet 50 mg PO QDAY 30 days #30 tabs 01/29/25 [Rx] meloxicam 7.5 mg tablet 7.5 mg PO QDAY 30 days #30 tabs 01/29/25 [Rx] metoprolol tartrate 50 mg tablet 50 mg PO BID 30 days #60 tabs 01/29/25 [Rx] pen needle, diabetic 29 gauge x 1/2 #100 ea 01/29/25 [Rx] sitagliptin phosphate 50 mg-metformin 1,000 mg tablet (Janumet) 1 tab PO BIDWMEAL 30 days #60 tabs 01/29/25 [Rx] MA Intake Visit Data Collection New Patient or Established: Established Patient (seen at [facility] within 3 years) Seen by Clinical Staff ONLY (RN/MA): No Pain Present Currently: No Pain scale:: 0 Pain Scale Used: Dillon-Butt/Numerical Steam Conditioner Filling Required: No PCP or OBGYN visit in last 3 months: No Smoking Status Smoking Status: Never smoker Immunization / Flu Flu Vaccine in the Last 12 Months: No Flu Vaccine Exclusion Criteria: No Exclusion Criteria Past Medical History Past Medical History CARDIAC: Positive Hypercholesterolemia and Hypertension; Negative Cardiac Disorders or Congestive Heart Failure RESPIRATORY: Negative Chronic Obstructive Pulmonary Disease (COPD) or Asthma GENITOURINARY: Negative Renal Disease ENDOCRINE: Positive Diabetes Mellitus Type 2; Negative Diabetes Mellitus Type 1 HEMATOLOGIC: Negative Sickle Cell Disease Social History SMOKING STATUS: Smoking status: Never smoker ALCOHOL: Alcohol Intake: Never HOUSING: Housing: Apartment LIVES WITH: Lives With: Family Patient Lisy Tripathi Social History Living Situation History Housing: Apartment Tobacco History Smoking Status: Never smoker Alcohol History Alcohol Intake: Never Review of Systems Report any current symptoms Only answer those that you have currently: Past Medical History Past Medical History Have you ever been diagnosed with any of the following: Cardiology Problems Hypercholesterolemia: Yes Congestive Heart Failure: No Hypertension: Yes Respiratory Problems Chronic Obstructive Pulmonary Disease (COPD): No Asthma: No Genital/Urinary Problems Renal Disease: No Endocrine Problems Diabetes Mellitus Type 1: No Diabetes Mellitus Type 2: Yes Blood Problems Sickle Cell Disease: No History of Present Illness HPI Brenda Tello Barajas is 50 yr male with PMH of non insulin dependent T2DM, HTN who was recently discharged from hospital on 01/28/25 due to intractable nausea, vomiting 2/2 diabetic gastroparesis. He is presenting to clinic today for a follow up. During hospitalization A1c found to be9.6. Patient takes Janumet, glyburide, and Jardiance for diabetes at home. Has never needed to use insulin. States that his symptoms of nausea and vomiting have resolved but now has some constipation. LBM was past Wednesday morning, no blood but needs to s train. He denies any [id number] treatment. also present during visit stated that glucose readings at home still range 180?200. Otherwise no other complaints at this time. Review of Systems Review of Systems Systems Reviewed: All systems reviewed, normal except as documented Objective/Exam Narrative Physical exam: General: Middle age male, No acute distress, cooperative, using cane for support HEENT: NCAT, No JVD noted. Mucosa moist. Pupils are equal and reactive to light bilaterally Cardiovascular: Normal S1 and S2. Regular rate and rhythm. Respiratory: Lungs are clear to auscultation bilaterally. No wheezing or crackles heard. Abdomen: Soft, nontender, not distended, normal bowel sounds. Not tender to palpation. Skin: Warm to touch, dry, no rashes noted Musculoskeletal: No gross injuries. Able to move all 4 extremities. No pitting edema Neuro: Alert and oriented x3. No focal neuro deficits. Psych: Normal affect and mood Assessment & Plan Diagnosis / Problem List (1) Diabetes mellitus: Status: Acute Assessment & Plan: 01/31/25: recently discharged from hospital on 01/28/25 due to intractable nausea, vomiting 2/2 diabetic gastroparesis. He is presenting to clinic today for a follow up. During hospitalization A1c found to be9.6. Patient takes Janumet, glyburide, and Jardiance for diabetes at home. Has never needed to use insulin. Plan: - Repeat labs including lipid panel as patient will need to be started on atorvastatin ?Start patient on degludec 10 units nightly ? Continue Janumet 50 Mg?1000 mg twice daily ? Continued Jardiance 25 mg daily ? Discontinue glyburide ? Ordered freestyle [place] for glucose monitoring ? Repeat A1c in 3 months Orders: Referrals Diabetes Education Additional Assessment Attending note: I, Neri Ch MD, attest that I was physically present for the [place] portions of the service and evaluated the patient with the resident and I reviewed and discussed the case with the resident and agree with the resident's findings and plans of care as documented above. Neri Ch MD Physician Billing New Patient New Patient: E/M Level 3-CPT 49493 Office Procedures [facility] Level of Care Nursing/Assessment Patient Status: Established Patient Nursing Assessment/Reassessment: Medication Reconciliation, Update PMH in EMR and Vital Signs Coordination of Care: Complex Care and Chronic Disease 1-5, Consent,records obtained, informed consent, Education Simp Pt/Fam and Staff clarify orders Established Patient Charge Established Patient Point Assignment: 85 Established Patient Point Charge: Level 3 (80-115)
== END 2025-01-29 11:59 | disposition home or self-care (01) ==
PROVIDERS: Supervising Provider Internal Medicine
DX: E11.9 Type 2 diabetes mellitus without complications (principal); Z79.84 Long term (current) use of oral hypoglycemic drugs
CPT/HCPCS: 99213; G0463

== ENCOUNTER 2025-02-12 10:59 | Outpatient (AMB) | payer MEDICAID, SELFPAY ==
--- NOTE | 2025-02-12 11:24 | ACNOTE_ITS ---
Vital Signs 02/12/25 11:26 Height 1.7 m Height Method Stated Weight 81.42 kg Weight Measurement Method Standing Scale BMI 28.1 BP 123/83 Blood Pressure Source Automatic Cuff Blood Pressure Location Right Upper Arm Position Sitting Respiration 18 Pulse 123 H Pulse Source Monitor Temp 98.3 F Temp Source Temporal Artery Scan Pulse Oximetry (%) 98 Oxygen Delivery Method Room Air Allergies/Meds Allergies & Medications Allergies No Known Drug Allergies Allergy (Verified 02/13/25 11:46) Medication Reconciliation Antacid (calcium carbonate) 600 mg PO DAILY 01/26/25 [History Confirmed 09/09] fenofibrate nanocrystallized 145 mg tablet (Tricor) 145 mg PO QDAY 01/26/25 [History Confirmed 02/13/25] Held on 01/27/25. Instructions: Resume on 02/10/25. Follow-up with PCP before restarting, repeat liver panel in 1 to 2 weeks 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 sensor (Green Is GoodStyle Diego 3 Sensor device) #1 ea 01/29/25 [Rx Confirmed 02/13/25] cyclobenzaprine 10 mg tablet 10 mg PO BID 30 days #60 tabs 01/29/25 [Rx Confirmed 02/13/25] empagliflozin 25 mg tablet (Jardiance) 25 mg PO QDAY 30 days #30 tabs 01/29/25 [Rx Confirmed 02/13/25] famotidine 20 mg tablet 20 mg PO HS 30 days #30 tabs 01/29/25 [Rx Confirmed 02/13/25] hydrochlorothiazide 25 mg tablet 25 mg PO BID 30 days #60 tabs 01/29/25 [Rx Confirmed 02/13/25] insulin degludec 100 unit/mL (3 mL) subcutaneous pen 10 unit (0.1 mL) subcut QHS #15 mL 01/29/25 [Rx Confirmed 02/13/25] losartan 50 mg tablet 50 mg PO QDAY 30 days #30 tabs 01/29/25 [Rx Confirmed 02/13/25] meloxicam 7.5 mg tablet 7.5 mg PO QDAY 30 days #30 tabs 01/29/25 [Rx Confirmed 02/13/25] metoprolol tartrate 50 mg tablet 50 mg PO BID 30 days #60 tabs 01/29/25 [Rx Confirmed 02/13/25] pen needle, diabetic 29 gauge x 1/2 #100 ea 01/29/25 [Rx Confirmed 02/13/25] sitagliptin phosphate 50 mg-metformin 1,000 mg tablet (Janumet) 1 tab PO BIDWMEAL 30 days #60 tabs 01/29/25 [Rx Confirmed 02/13/25] blood sugar diagnostic (Blood Glucose Test strips) #50 ea 02/09/25 [Rx Confirmed 02/13/25] lancets 33 gauge (TRUEplus Lancets) #100 ea 02/09/25 [Rx Confirmed 02/13/25] atorvastatin 40 mg tablet 40 mg PO QDAY 30 days #30 tabs 02/12/25 [Rx Confirmed 02/13/25] MA Intake Visit Data Collection New Patient or Established: Established Patient (seen at [facility] within 3 years) Seen by Clinical Staff ONLY (RN/MA): No Pain Present Currently: No Pain scale:: 0 Pain Scale Used: Dillon-Butt/Numerical Career Based Intervention Coordinator Required: No PCP or OBGYN visit in last 3 months: No Hx Now: No Do You Feel Safe at Home: Yes Authorities Contacted: N/A Smoking Status Smoking Status: Never smoker Immunization / Flu Flu Vaccine in the Last 12 Months: No Flu Vaccine Exclusion Criteria: Refused by Patient Past Medical History Past Medical History CARDIAC: Positive Hypercholesterolemia and Hypertension; Negative Cardiac Disorders or Congestive Heart Failure RESPIRATORY: Negative Chronic Obstructive Pulmonary Disease (COPD) or Asthma GENITOURINARY: Negative Renal Disease ENDOCRINE: Positive Diabetes Mellitus Type 2; Negative Diabetes Mellitus Type 1 HEMATOLOGIC: Negative Sickle Cell Disease Social History SMOKING STATUS: Smoking status: Never smoker ALCOHOL: Alcohol Intake: Never HOUSING: Housing: Apartment LIVES WITH: Lives With: Family Patient Portal Questionairjf Social History Living Situation History Housing: Apartment Tobacco History Smoking Status: Never smoker Alcohol History Alcohol Intake: Never Domestic Abuse History Do You Feel Safe at Home: Yes Review of Systems Report any current symptoms Only answer those that you have currently: Past Medical History Past Medical History Have you ever been diagnosed with any of the following: Cardiology Problems Hypercholesterolemia: Yes Congestive Heart Failure: No Hypertension: Yes Respiratory Problems Chronic Obstructive Pulmonary Disease (COPD): No Asthma: No Genital/Urinary Problems Renal Disease: No Endocrine Problems Diabetes Mellitus Type 1: No Diabetes Mellitus Type 2: Yes Blood Problems Sickle Cell Disease: No History of Present Illness HPI Brenda Tello Barajas is 50 yr male with PMH of non insulin dependent T2DM, HTN who was recently discharged from hospital on 01/28/25 due to intractable nausea, vomiting 2/2 diabetic gastroparesis. He is presenting to clinic today for a follow up. During hospitalization A1c found to be9.6. Patient takes Janumet, glyburide, and Jardiance for diabetes at home. Has never needed to use insulin. States that his symptoms of nausea and vomiting have resolved but now has some constipation. LBM was past Wednesday morning, no blood but needs to strain. He denies any [id number] treatment. also present during visit stated that glucose readings at home still range 180?200. Otherwise no other complaints at this time. 02/12/25: Patient presenting to clinic for lab results. GI symptoms have resolved over past few weeks. Blood sugars are well controlled with PO medications. States that he has only needed to use insulin twice when sugars were <200. Labs showed AST 79, ALT 115, Cr 0.76, BUN 12, TAG 263, LDL 110, HDL 33. Plan to resume atrovastatin. No other major complaints at this time. Review of Systems Review of Systems Systems Reviewed: All systems reviewed, normal except as documented Objective/Exam Narrative Physical exam: General: Middle age male, No acute distress, cooperative, no cane on this visit HEENT: NCAT, No JVD noted. Mucosa moist. Pupils are equal and reactive to light bilaterally Cardiovascular: Normal S1 and S2. Regular rate and rhythm. Respiratory: Lungs are clear to auscultation bilaterally. No wheezing or crackles heard. Abdomen: Soft, nontender, not distended, normal bowel sounds. Not tender to palpation. Skin: Warm to touch, dry, no rashes noted Musculoskeletal: No gross injuries. Able to move all 4 extremities. No pitting edema Neuro: Alert and oriented x3. No focal neuro deficits. Psych: Normal affect and mood Office Procedures [facility] Level of Care Nursing/Assessment Patient Status: Established Patient Nursing Assessment/Reassessment: Medication Reconciliation, Update PMH in EMR and Vital Signs Coordination of Care: Complex Care and Chronic Disease 1-5, Consent,records obtained, informed consent, Education Simp Pt/Fam, Results/Orders obtained and Staff clarify orders Established Patient Charge Established Patient Point Assignment: 90 Established Patient Point Charge: Level 3 (80-115)
[2025-02-12 11:26] VITALS: BP 123/83; PULSE 123; RESP 18; TEMP 36.8; O2SAT 98; BMI 28.1
== END 2025-02-12 11:38 | disposition home or self-care (01) ==
LOC: HODAHC 10:59
PROVIDERS: Supervising Provider Internal Medicine
DX: Z71.2 Person consulting for explanation of examination or test findings (principal); E11.9 Type 2 diabetes mellitus without complications; I10 Essential (primary) hypertension; Z79.84 Long term (current) use of oral hypoglycemic drugs
CPT/HCPCS: 99213; G0463

== ENCOUNTER 2025-05-25 12:55 | Outpatient (AMB) | payer MEDICAID, SELFPAY ==
--- NOTE | 2025-05-25 13:17 | PD.RESCLINIC ---
Vital Signs 05/25/25 13:18 Height 1.7 m Height Method Stated Weight 79.889 kg Weight Measurement Method Standing Scale BMI 27.6 BP 128/90 H Blood Pressure Source Automatic Cuff Blood Pressure Location Right Upper Arm Position Sitting Respiration 16 Pulse 79 Pulse Source Monitor Temp 96 F L Temp Source Temporal Artery Scan Pulse Oximetry (%) 98 Oxygen Delivery Method Room Air Allergies/Meds Allergies & Medications Allergies No Known Drug Allergies Allergy (Verified 05/25/25 13:21) Medication Reconciliation Antacid (calcium carbonate) 600 mg PO DAILY 01/26/25 [History Confirmed 05/25/25] blood sugar diagnostic (Blood Glucose Test strips) #50 ea 05/25/25 [Rx] 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 sensor (FreeStyle Diego 3 Sensor device) #1 ea 05/25/25 [Rx] 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,live truck operator,cont (FreeStyle Diego 3 Adkins) #1 ea 05/25/25 [Rx] celecoxib 200 mg capsule 200 mg PO BID PRN pain #30 caps 05/25/25 [Rx] empagliflozin 25 mg tablet (Jardiance) 25 mg PO QDAY #30 tabs 05/25/25 [Rx] insulin degludec 100 unit/mL (3 mL) subcutaneous pen 16 unit (0.16 mL) subcut QHS #15 mL 05/25/25 [Rx] lancets 33 gauge (TRUEplus Lancets) #100 ea 05/25/25 [Rx] losartan 25 mg tablet 12.5 mg (1/2 x 25 mg) PO QDAY #30 tabs 05/25/25 [Rx] pen needle, diabetic 29 gauge x 1/2 #100 ea 05/25/25 [Rx] sertraline 25 mg tablet 25 mg PO QDAY #30 tabs 05/25/25 [Rx] MA Intake Visit Data Collection New Patient or Established: Established Patient (seen at [facility] within 3 years) Seen by Clinical Staff ONLY (RN/MA): No Reason for Visit:: follow up Pain Present Currently: Yes Pain Location: Shoulder (left) Pain scale:: 10 Pain Scale Used: DillonTobias/Numerical Band Singer Required: No PCP or OBGYN visit in last 3 months: Yes Hx Now: No Do You Feel Safe at Home: Yes Authorities Contacted: N/A Smoking Status Smoking Status: Never smoker Immunization / Flu Flu Vaccine in the Last 12 Months: No Flu Vaccine Exclusion Criteria: No Exclusion Criteria Past Medical History Past Medical History CARDIAC: Positive Hypercholesterolemia and Hypertension; Negative Cardiac Disorders or Congestive Heart Failure RESPIRATORY: Negative Chronic Obstructive Pulmonary Disease (COPD) or Asthma GENITOURINARY: Negative Renal Disease ENDOCRINE: Positive Diabetes Mellitus Type 2; Negative Diabetes Mellitus Type 1 HEMATOLOGIC: Negative Sickle Cell Disease Social History SMOKING STATUS: Smoking status: Never smoker ALCOHOL: Alcohol Intake: Never HOUSING: Housing: Apartment LIVES WITH: Lives With: Family Patient Portal Questionaires PHQ-9 PHQ-2 Over the last 2 weeks, how often have you been bothered by any of the following problems? 1. Little interest or pleasure in doing things: not at all 2. Feeling down, depressed, or hopeless: not at all Total score: 0 PHQ-9 3. Trouble falling or staying asleep, or sleeping too much: Not at all 4. Feeling tired or having little energy: Not at all 5. Poor appetite or overeating: Not at all 6. Feeling bad about yourself - or that you are a failure or have let yourself or your family down: Not at all 7. Trouble concentrating on things, such as reading the newspaper or watching television: Not at all 8. Moving or speaking so slowly that other people could have noticed? - Or the opposite - being so fidgety or restless that you have been moving around a lot more than usual: not at all 9. Thoughts that you would be better off or of hurting yourself in some way: Not at all Total score: 0 Source: Developed by Drs. Ever Jordan, Kajal White, Watson Khalil and colleagues, with an educational mariposa from [employer]. Depression screen completed yes Social History Living Situation History Housing: Apartment Tobacco History Smoking Status: Never smoker Alcohol History Alcohol Intake: Never Domestic Abuse History Do You Feel Safe at Home: Yes Review of Systems Report any current symptoms Only answer those that you have currently: Past Medical History Past Medical History Have you ever been diagnosed with any of the following: Cardiology Problems Hypercholesterolemia: Yes Congestive Heart Failure: No Hypertension: Yes Respiratory Problems Chronic Obstructive Pulmonary Disease (COPD): No Asthma: No Genital/Urinary Problems Renal Disease: No Endocrine Problems Diabetes Mellitus Type 1: No Diabetes Mellitus Type 2: Yes Blood Problems Sickle Cell Disease: No History of Present Illness YOSEF Salasubiasbeltran is 50 yr male with PMH of non insulin dependent T2DM, HTN who was recently discharged from hospital on 01/28/25 due to intractable nausea, vomiting 2/2 diabetic gastroparesis. He is presenting to clinic today for a follow up. During hospitalization A1c found to be9.6. Patient takes Janumet, glyburide, and Jardiance for diabetes at home. Has never needed to use insulin. States that his symptoms of nausea and vomiting have resolved but now has some constipation. LBM was past Wednesday morning, no blood but needs to strain. He denies any bkyz-hlz-wjyqgrt treatment. also present during visit stated that glucose readings at home still range 180?200. Otherwise no other complaints at this time. 02/12/25: Patient presenting to clinic for lab results. GI symptoms have resolved over past few weeks. Blood sugars are well controlled with PO medications. States that he has only needed to use insulin twice when sugars were <200. Labs showed AST 79, ALT 115, Cr 0.76, BUN 12, TAG 263, LDL 110, HDL 33. Plan to resume atorvastatin. No other major complaints at this time. 05/25/2025, patient is seen in the clinic for follow-up, complaining of debilitating pain left shoulder since last few months. Patient stated the pain is localized to the left shoulder, radiates down the back of his arm to elbow, denied any radiation to neck or jaw or chest pain. Patient reported the pain is constant and is there all day, even wakes him up from sleep, patient takes cannabis vapes to help with discomfort. Denied any shortness of breath chest pressure or syncopal episodes, but did note that every time he walks out to do some yard work he feels like he is going to pass out. Vitals were normal on this visit, we did orthostatic vitals standing blood pressure 123/87, sitting 128/90 and laying blood pressure 121/80, negative orthostatics. Patient did report he was prescribed Viagra/Cialis by ER provider at [facility], for erectile dysfunction. Reported depressing symptoms, unable to sleep, PHQ-9 16, moderately severe depression. Will initiate sertraline. Added celecoxib for pain management. Physical therapy for adhesive capsulitis. Patient also reported he has been checking his blood glucose fingerstick at home, and blood breaks up. Fingerstick glucose levels more than 200 on average. Increased insulin degludec dose to 16 units every night, provided counseling and education about logging fingerstick glucose results on paper, titrating insulin up or down 2 units every 3 days to target fasting blood glucose between 120-140. Will aim for stricter glucose control on next visit in 4 weeks. Patient will also need cardiology referral for presyncopal symptoms. Review of Systems Review of Systems Systems Reviewed: All systems reviewed, normal except as documented Objective/Exam Narrative Physical exam: General: Middle age male, No acute distress, cooperative, no cane on this visit HEENT: NCAT, No JVD noted. Mucosa moist. Pupils are equal and reactive to light bilaterally Cardiovascular: Normal S1 and S2. Regular rate and rhythm. Respiratory: Lungs are clear to auscultation bilaterally. No wheezing or crackles heard. Abdomen: Soft, nontender, not distended, normal bowel sounds. Not tender to palpation. Skin: Warm to touch, dry, no rashes noted Musculoskeletal: No gross injuries. Able to move all 4 extremities. No pitting edema Neuro: Alert and oriented x3. No focal neuro deficits. Psych: Normal affect and mood Assessment & Plan Diagnosis / Problem List (1) Erectile disorder: Status: Acute Assessment & Plan: Patient reportedly takes Viagra and Cialis, prescribed by [facility] providers. 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 Plan: ? Sertraline 25 mg daily ? Recommended to stop taking Viagra and Cialis as he has presyncopal symptoms. (2) Depression: Status: Acute Assessment & Plan: PHQ-9 score 16 moderate severe depression, clinical history consistent with depression unable to sleep, requires THC prior to sleeping, still wakes up every day, feels inadequate, and emotionally drained, denied suicidal ideation. Denied intention of self-harm. Plan: ? Sertraline 25 mg daily. (3) Pre-syncope: Status: Acute Assessment & Plan: Denied any shortness of breath chest pressure or syncopal episodes, but did note that every time he walks out to do some yard work he feels like he is going to pass out. Vitals were normal on this visit, we did orthostatic vitals standing blood pressure 123/87, sitting 128/90 and laying blood pressure 121/80, negative orthostatics. Patient did report he was prescribed Viagra/Cialis by ER provider at [facility], for erectile dysfunction. Plan: ? Cardiology referral ordered ? Decrease losartan dose to 12.5 mg daily (4) Adhesive capsulitis: Status: Acute Assessment & Plan: Limited active and passive movement flexion abduction and extension of shoulder joint, due to pain. Patient reports severe pain that wakes him up at night, patient also cries due to severity of pain, takes cannabis to help with symptoms. Recommended slowly weaning off of cannabis and prescribed celecoxib and physical therapy. Will get imaging of left shoulder. Plan: ? Celecoxib 200 mg daily twice daily ? Physical therapy referral ? X-ray left shoulder (5) Diabetes mellitus: Status: Acute Assessment & Plan: Patient also reported he has been checking his blood glucose fingerstick at home, and blood breaks up. Fingerstick glucose levels more than 200 on average. Increased insulin degludec dose to 16 units every night, provided counseling and education about logging fingerstick glucose results on paper, titrating insulin up or down 2 units every 3 days to target fasting blood glucose between 120-140. Will aim for stricter glucose control on next visit in 4 weeks. Plan: - insulin degludec 16 units qday - Diego 3 reader and sensor ordered - A1c on follow up , renal panel and urinalysis ordered Plan Plan of care discussed with MD Froylan Lewis MD, PGY3 Orders: Orders Ambulatory Hemoglobin A1C Today E11.9 - Type 2 diabetes mellitus without complications Renal Function Panel Today E11.9 - Type 2 diabetes mellitus without complications Urinalysis Today E11.9 - Type 2 diabetes mellitus without complications XR shoulder LT min 2V Today Referrals Cardiology M75.00 - Adhesive capsulitis of unspecified shoulder Physical Therapy - Referral Office Procedures [facility] Level of Care Nursing/Assessment Patient Status: Established Patient Nursing Assessment/Reassessment: Medication Reconciliation, Update PMH in EMR and Vital Signs Coordination of Care: Complex Care and Chronic Disease 1-5, Consent,records obtained, informed consent, Education Simp Pt/Fam, Lab and Imaging orders and Staff clarify orders Established Patient Charge Established Patient Point Assignment: 100 Established Patient Point Charge: EP Level 3 (80-115) TB Screening LTBI Screening: Has patient traveled, was born, or resided for at least 1 month, or frequent border crossing into a country with an elevated TB rate: No
[2025-05-25 13:18] VITALS: BP 128/90; PULSE 79; RESP 16; TEMP 35.5; O2SAT 98; BMI 27.6
== END 2025-05-25 13:52 | disposition home or self-care (01) ==
PROVIDERS: Supervising Provider Internal Medicine; Visit Provider Student in an Organized Health Care Education/Training Program
DX: M75.02 Adhesive capsulitis of left shoulder (principal); E11.9 Type 2 diabetes mellitus without complications; N52.9 Male erectile dysfunction, unspecified; F32.A Depression, unspecified; R55 Syncope and collapse; Z79.4 Long term (current) use of insulin
CPT/HCPCS: 99213; G0463

== ENCOUNTER 2025-06-22 12:54 | Outpatient (AMB) | payer MEDICAID, SELFPAY ==
[2025-06-22 13:06] VITALS: BP 125/84; PULSE 63; RESP 16; TEMP 36.3; O2SAT 98; BMI 27.6
--- NOTE | 2025-06-22 13:06 | PD.RESCLINIC ---
Vital Signs 06/22/25 13:06 Height 1.7 m Height Method Stated Weight 79.832 kg Weight Measurement Method Standing Scale BMI 27.6 BP 125/84 Blood Pressure Source Automatic Cuff Blood Pressure Location Right Upper Arm Position Sitting Respiration 16 Pulse 63 Pulse Source Monitor Temp 97.3 F Temp Source Temporal Artery Scan Pulse Oximetry (%) 98 Oxygen Delivery Method Room Air Allergies/Meds Allergies & Medications Allergies No Known Drug Allergies Allergy (Verified 06/22/25 13:08) Medication Reconciliation Antacid (calcium carbonate) 600 mg PO DAILY 01/26/25 [History Confirmed 06/22/25] blood sugar diagnostic (Blood Glucose Test strips) #50 ea 05/25/25 [Rx Confirmed 06/22/25] 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 sensor (FreeStyle Diego 3 Sensor device) #1 ea 05/25/25 [Rx Confirmed 06/22/25] 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,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,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 (FreeStyle Diego 3 Crump) #1 ea 05/25/25 [Rx Confirmed 06/22/25] celecoxib 200 mg capsule 200 mg PO BID PRN pain #30 caps 05/25/25 [Rx Confirmed 06/22/25] empagliflozin 25 mg tablet (Jardiance) 25 mg PO QDAY #30 tabs 05/25/25 [Rx Confirmed 06/22/25] lancets 33 gauge (TRUEplus Lancets) #100 ea 05/25/25 [Rx Confirmed 06/22/25] losartan 25 mg tablet 12.5 mg (1/2 x 25 mg) PO QDAY #30 tabs 05/25/25 [Rx Confirmed 06/22/25] pen needle, diabetic 29 gauge x 1/2 #100 ea 05/25/25 [Rx Confirmed 06/22/25] sertraline 25 mg tablet 25 mg PO QDAY #30 tabs 05/25/25 [Rx Confirmed 06/22/25] insulin degludec 100 unit/mL (3 mL) subcutaneous pen 20 unit (0.2 mL) subcut QHS #15 mL 06/22/25 [Rx] linagliptin 2.5 mg-metformin 1,000 mg tablet (Jentadueto) 1 tab PO BID 06/22/25 [History] metoprolol tartrate 50 mg-hydrochlorothiazide 25 mg tablet 1 tab PO BID 06/22/25 [History] nitroglycerin 0.4 mg sublingual tablet 0.4 mg sublingual Q5M PRN chest pain #20 tabs 06/22/25 [Rx] MA Intake Visit Data Collection New Patient or Established: Established Patient (seen at [facility] within 3 years) Seen by Clinical Staff ONLY (RN/[id number]): No Pain Present Currently: Yes Pain Location: Unable to identify Pain scale:: 10 Pain Scale Used: Dillon-Butt/Numerical Management And Budget Analyst Required: No PCP or OBGYN visit in last 3 months: Yes Do You Feel Safe at Home: Yes Authorities Contacted: N/A Smoking Status Smoking Status: Never smoker Immunization / Flu Flu Vaccine in the Last 12 Months: No Flu Vaccine Exclusion Criteria: No Exclusion Criteria Past Medical History Past Medical History CARDIAC: Positive Hypercholesterolemia and Hypertension; Negative Cardiac Disorders or Congestive Heart Failure RESPIRATORY: Negative Chronic Obstructive Pulmonary Disease (COPD) or Asthma GENITOURINARY: Negative Renal Disease ENDOCRINE: Positive Diabetes Mellitus Type 2; Negative Diabetes Mellitus Type 1 HEMATOLOGIC: Negative Sickle Cell Disease Social History SMOKING STATUS: Smoking status: Never smoker ALCOHOL: Alcohol Intake: Never HOUSING: Housing: Apartment LIVES WITH: Lives With: Family Patient Portal Questionaires PHQ-9 PHQ-2 Over the last 2 weeks, how often have you been bothered by any of the following problems? 1. Little interest or pleasure in doing things: not at all 2. Feeling down, depressed, or hopeless: not at all Total score: 0 PHQ-9 3. Trouble falling or staying asleep, or sleeping too much: Not at all 4. Feeling tired or having little energy: Not at all 5. Poor appetite or overeating: Not at all 6. Feeling bad about yourself - or that you are a failure or have let yourself or your family down: Not at all 7. Trouble concentrating on things, such as reading the newspaper or watching television: Not at all 8. Moving or speaking so slowly that other people could have noticed? - Or the opposite - being so fidgety or restless that you have been moving around a lot more than usual: not at all 9. Thoughts that you would be better off or of hurting yourself in some way: Not at all Total score: 0 If you checked off any problems, how difficult have these problems made it for you to do your work, take care of things at home, or get along with other people?: not difficult at all Source: Developed by Drs. Ever Jordan, Kajal White, Watson Khalil and colleagues, with an educational mariposa from [employer]. Social History Living Situation History Housing: Apartment Tobacco History Smoking Status: Never smoker Alcohol History Alcohol Intake: Never Domestic Abuse History Do You Feel Safe at Home: Yes Review of Systems Report any current symptoms Only answer those that you have currently: Past Medical History Past Medical History Have you ever been diagnosed with any of the following: Cardiology Problems Hypercholesterolemia: Yes Congestive Heart Failure: No Hypertension: Yes Respiratory Problems Chronic Obstructive Pulmonary Disease (COPD): No Asthma: No Genital/Urinary Problems Renal Disease: No Endocrine Problems Diabetes Mellitus Type 1: No Diabetes Mellitus Type 2: Yes Blood Problems Sickle Cell Disease: No History of Present Illness HPI Narrative Tello Hopson is a 50-year-old male with history of insulin-dependent type 2 diabetes mellitus, gastroparesis, fatty liver, and hypertension who presents to [facility] for follow-up. Discharged from [facility] on 01/28/2025 for intractable nausea and vomiting secondary to diabetic gastroparesis. A1c found to be 9.6% with regimen of: Janumet 50-1000 BID, glyburide 5 mg daily, and jardiance 25 mg daily. 02/12/2025: Presented to clinic for lab results. GI symptoms have resolved. Blood sugars well controlled with PO medications. States that he has only needed to use insulin twice when sugars were > 200. Labs showed AST 79, ALT 115, Cr 0.76, BUN 12, TGL 263, LDL 110, HDL 33. Plan to resume atorvastatin. No other major complaints at this time. 05/25/2025: Complains of debilitating pain left shoulder since last few months. Pain localized to left shoulder, radiates down back of his arm to elbow, constant and has woken him up from sleep. Vapes cannabis to help with discomfort. Also notes that when he does yard work he feels like he is going to pass out but no syncopal episodes. Vitals normal on this visit, including orthostatics that showed standing BP of 123/87, sitting BP of 128/90, and laying BP of 121/80. Recently prescribed Viagra/Cialis by provider at [facility] for ED. Reported depression symptoms, PHQ-9 score of 16, moderate-severe depression and started on sertraline. For shoulder pain started celecoxib and referral for physical therapy, likely adhesive capsulitis. Blood sugars at home > 200 o naverage and degludec increased to 16. Provided counseling and education about logging fingersticks o npaper, titrating insulin to target blood glucose between 120-140. Will aim for stricter glucose control on next visit in 4 weeks. Will also need cardiology referral for presyncopal symptoms. 06/22/2025: Repeat labs showed A1c 8.6% (9.6% on 01/27/2025), glucose 155, renal function normal but UA with 3+ sugar. LDL 70, HDL low, and TGL > 270. Continues to endorse left shoulder pain that is only mildly relieved with celecoxib. Per , patient has already tried topical ointments and patches. His [id number] has prescribed buprenorphine transdermal patch that he states helps but will try PT before prescribing and send referral to ortho for evaluation of steroid injection. Replaced left shoulder XR. Regarding blood sugars, states that morning blood sugars are < 140 on average on 18 units of long-acting and will increase to 20 units for further control. Cardiology referral placed last visit for presyncope but at this visit describes cardiac chest pain: substernal, radiates to neck, worse with exertion and improves with rest with associated shortness of breath and presyncopal symptoms (sweats, lightheadedness). Will change referral to urgent and prescribe nitroglycerin with strict ED precautions. Review of Systems Review of Systems Systems Reviewed: All systems reviewed, normal except as documented Objective/Exam Narrative Physical exam: General: AOx3, no acute distress, able to speak full sentences HEENT: NC/AT, mucous membranes moist, bilateral sclera anicteric Cardiovascular: regular rate and rhythm, S1/S2 present, no murmurs appreciated Pulmonary: clear to auscultation bilaterally, no rales/rhonchi/wheezes Abdominal: soft, non-tender, non-distended, no rebound/guarding, normal bowel sounds present Musculoskeletal: left shoulder with limited active and passive ROM; no peripheral edema Skin: warm and dry, intact, no rashes Neuro: CN II-XII intact, no focal deficits Assessment & Plan Diagnosis / Problem List (1) Chest pain, cardiac: Status: Acute Assessment & Plan: Substernal chest discomfort that radiates to neck. Worse with exertion and improves with rest with associated shortness of breath and presyncopal symptoms (sweats, lightheadedness). States both grandfathers had heart attacks but unsure at what age. Orthostatic vitals negative on previous visit. Plan: ? Urgent cardiology referral placed ? Nitroglycerin 0.4 mg sublingual every 5 minutes ? 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 Plan: ? Insulin degludec 20 units daily ? Jardiance 25 mg daily ? Jentadueto 2.5-1000 mg twice daily ? Diego 3 reader and sensor ordered ? Podiatry referral placed (3) Adhesive capsulitis: Status: Acute Qualifiers: Laterality: left Qualified Code(s): M75.02 - Adhesive capsulitis of left shoulder Assessment & Plan: Significant left shoulder pain last few months that is severe enough to wake him up and cry. Takes cannibis to help with symptoms. Limited active and passive flexion, abduction, and extension of shoulder joint due to pain. Plan: ? Celecoxib 200 mg daily twice daily ? Physical therapy referral ? Ortho referral placed for steroid injection ? X-ray left shoulder (4) Erectile disorder: Status: Acute Assessment & Plan: Reportedly takes Viagra and Cialis prescribed by [facility] providers. Recent diagnosis of diabetes mellitus, less likely vascular origin erectile dysfunction. 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 Plan: ? Sertraline 25 mg daily ? Recommended to stop taking Viagra and Cialis as he has presyncopal symptoms (5) Depression: Status: Acute Qualifiers: Depression Type: unspecified Qualified Code(s): F32.A - Depression, unspecified Assessment & Plan: PHQ-9 score 16 moderate severe depression, clinical history consistent with depression unable to sleep, requires THC prior to sleeping, still wakes up every day, feels inadequate, and emotionally drained, denied suicidal ideation. Denied intention of self-harm. Plan: ? Sertraline 25 mg daily (6) Hypertension associated with diabetes: Status: Acute Plan: ? Losartan 12.5 mg daily ? Metoprolol-HCTZ 50-25 twice daily Orders: Orders XR shoulder LT min 2V 05/25/25 M75.00 - Adhesive capsulitis of unspecified shoulder Referrals Orthopedics M75.00 - Adhesive capsulitis of unspecified shoulder Podiatry E11.621 - Type 2 diabetes mellitus with foot ulcer, L97.509 - Non-pressure chronic ulcer of other part of unspecified foot with unspecified severity Cardiology R07.9 - Chest pain, unspecified Office Procedures [facility] Level of Care Nursing/Assessment Patient Status: Established Patient Nursing Assessment/Reassessment: Medication Reconciliation, Update PMH in EMR and Vital Signs Coordination of Care: Complex Care and Chronic Disease 1-5, Complex Care/Chronic Disease 5 or more, Consent,records obtained, informed consent, Lab and Imaging orders, Results/Orders obtained and Staff clarify orders Established Patient Charge Established Patient Point Assignment: 125 Established Patient Point Charge: Level 4 (120-155)
== END 2025-06-22 14:33 | disposition home or self-care (01) ==
PROVIDERS: Supervising Provider Internal Medicine
DX: R07.89 Other chest pain (principal); E11.43 Type 2 diabetes mellitus with diabetic autonomic (poly)neuropathy; M75.02 Adhesive capsulitis of left shoulder; Z79.1 Long term (current) use of non-steroidal anti-inflammatories (NSAID); N52.9 Male erectile dysfunction, unspecified; F32.A Depression, unspecified; I15.2 Hypertension secondary to endocrine disorders; E11.621 Type 2 diabetes mellitus with foot ulcer; L97.509 Non-pressure chronic ulcer of other part of unspecified foot with unspecified severity; Z79.4 Long term (current) use of insulin
CPT/HCPCS: 99214; G0463